=== PATIENT | male | born 1940 | race Caucasian/White ===

== ENCOUNTER 2024-10-18 19:26 | Inpatient (IN) | payer MEDICARE, OTHER ==
[~2024-10-18] VITALS: Ht 170.2 cm; Wt 65.8 kg
[2024-10-18] MEDS ORDERED: CEFTRIAXONE /D5W 50ML IVPB **ER PYXIS IV ONE (20:00)
[2024-10-18] MEDS ORDERED: AZITHROMYCIN 500MG/ D5W 250ML IVPB **ER PYXIS ONLY IV ONE (20:00)
[2024-10-18] MEDS: IV NORMAL SALINE 1000 ML BAG IV ONE (20:02)
[2024-10-18] MEDS: CEFTRIAXONE 1 G in IV DEXTROSE 5% 50 ML IV ONE (20:02)
[2024-10-18] MEDS: AZITHROMYCIN IV 500 MG in IV DEXTROSE 5% 250 ML IV ONE (20:03)
[2024-10-18 20:29] LABS: BASOPHILS # (AUTO) 0.1 K/UL (0.0-0.2); BASOPHILS % (AUTO) 0.3 % (0.0-2.0); EOSINOPHILS % (AUTO) 0.3 % (0.0-7.0); HEMATOCRIT 32.2 % (36.7-47.1); HEMOGLOBIN 10.2 g/dL (12.5-16.3); LYMPHOCYTES % (AUTO) 5.7 % (20.5-51.5); MEAN CORPUSCULAR HEMOGLOBIN 25.6 uug (23.8-33.4); MEAN CORPUSCULAR HGB CONC 32 g/dL (32.5-36.3); MEAN CORPUSCULAR VOLUME 81.1 fL (73.0-96.2); MONOCYTES # (AUTO) 0.8 K/uL (0.1-1.30); MONOCYTES % (AUTO) 4.6 % (0.0-11.0); NEUTROPHILS # (AUTO) 16.1 K/uL (1.8-8.9); NEUTROPHILS % (AUTO) 89.1 % (38.5-71.5); PLATELET COUNT (AUTO) 229 K/uL (152-348); RED BLOOD CELL COUNT(AUTO) 3.97 MIL/uL (4.06-5.63); WHITE BLOOD COUNT (AUTO) 18.1 K/uL (3.6-10.2)
[2024-10-18 20:39] LABS: CALCIUM 8.1 mg/dL (8.5-10.1); CARBON DIOXIDE 29 mmol/L (21-32); CHLORIDE 112 mmol/L (98-107); GLUCOSE 99 mg/dL (74-106); POTASSIUM 3.9 mmol/L (3.5-5.1); SODIUM SERUM 148 mmol/L (136-145); UREA NITROGEN, BLOOD 37 mg/dL (7-18)
[2024-10-18 20:40] LABS: DIFFERENTIAL COMMENT 1
[2024-10-18 20:53] LABS: ALANINE AMINOTRANSFERASE 12 U/L (16-63); ALBUMIN 2.2 g/dL (3.4-5.0); ALKALINE PHOSPHATASE 113 U/L (50-136); ASPARTATE AMINOTRANSFERASE 13 U/L (15-37); BILIRUBIN,DIRECT 0.4 mg/dL (0.0-0.2); BILIRUBIN,TOTAL 0.9 mg/dL (0.2-1.0); NT-PRO BNP 3991 pg/mL (0-125); TOTAL PROTEIN, SERUM 6.4 g/dL (6.4-8.2)
[2024-10-18] MEDS ORDERED: BRIM5DRO3 OP (21:00)
[2024-10-18] MEDS ORDERED: AMIN30LI2 PO (21:00)
[2024-10-18] MEDS ORDERED: ASCO500C18 PO (21:00)
[2024-10-18] MEDS ORDERED: CHOL2000 PO (21:00)
[2024-10-18] MEDS ORDERED: TRAV5DRO EACHEYE (21:00)
[2024-10-18] MEDS ORDERED: BISA10SU61 RC (21:00)
[2024-10-18] MEDS ORDERED: ACET-3117 PO (21:00)
[2024-10-18] MEDS ORDERED: AMIN960L24 PO (21:00)
[2024-10-18] MEDS ORDERED: RIVA10TA PO (21:00)
[2024-10-18] MEDS ORDERED: CLON0.1T PO (21:00)
[2024-10-18] MEDS ORDERED: SENN8.6T19 PO (21:00)
[2024-10-18] MEDS ORDERED: LACO50TA2 PO (21:00)
[2024-10-18] MEDS ORDERED: ALBU8.5H8 IH (21:00)
[2024-10-18] MEDS ORDERED: CALC1POW43 PO (21:00)
[2024-10-18] MEDS ORDERED: ZINC220T4 PO (21:00)
[2024-10-18] MEDS ORDERED: MAGN400O6 PO (21:00)
[2024-10-18] MEDS ORDERED: LEVE500T9 PO (21:00)
[2024-10-18] MEDS ORDERED: CRAN450T9 PO (21:00)
[2024-10-18] MEDS ORDERED: ERGO2000 PO (21:00)
[2024-10-18] MEDS ORDERED: ZOLP5TAB2 PO (21:00)
[2024-10-18] MEDS ORDERED: DORZ10DR18 EACHEYE (21:00)
[2024-10-18] MEDS ORDERED: CARB200C6 PO (21:00)
[2024-10-18] MEDS ORDERED: NA P133E RC (21:00)
[2024-10-18] MEDS ORDERED: norco PO (21:00)
[2024-10-18] MEDS ORDERED: MULT-213 PO (21:00)
[2024-10-18] MEDS ORDERED: ATOR20TA PO (21:00)
[2024-10-18] MEDS ORDERED: IPRA3AMP22 IH (21:00)
[2024-10-18] MEDS ORDERED: LOSA25TA27 PO (21:00)
[2024-10-18] MEDS ORDERED: OMEP40CA21 PO (21:00)
[2024-10-18 21:19] LABS: ABG BASE EXCESS -1.4 mmol/L (-2.0-3.0); ABG PCO2 32.1 mmHg (35.0-48.0); ABG PH 7.454 (7.350-7.450); ABG PO2 82.3 mmHg (83.0-108.0); ABG SITE RIGHT RADIAL; ABG TOTAL HEMOGLOBIN 10.3 G/dL (13.5-17.5); AaDO2 96.7 mmHg; COHb 0.6 % (0.5-1.5); MetHb 0.1 % (0.0-1.5); O2Hb 94.7 % (94.0-98.0)
[2024-10-18] MEDS ORDERED: ALBUTEROL SULFATE 2.5 MG/3 ML NEBU NEB PRN (21:30)
[2024-10-18] MEDS ORDERED: IPRATROPIUM BROMIDE 0.5 MG/2.5 ML NEBU NEB PRN (21:30)
[2024-10-18] MEDS ORDERED: ONDANSETRON 4 MG/2 ML VIAL IV PRN (21:30)
[2024-10-18] MEDS ORDERED: MAGNESIUM HYDROXIDE 30 ML LIQUID UDC PO PRN (21:30)
[2024-10-18] MEDS ORDERED: REMEDY ESSENTIAL ZINC PASTE 113 GM TP PRN (21:30)
[2024-10-18] MEDS ORDERED: ACETAMINOPHEN 325 MG TABLET PO PRN (21:30)
[2024-10-18] MEDS: AMIODARONE HCL IV 150 MG in IV DEXTROSE 5% 100 ML IV ONE (21:45)
[2024-10-18] MEDS ORDERED: AMIODARONE HCL 150 MG/3 ML VIAL IV ONE (22:56)
[2024-10-18 23:00] VITALS: BP 148/84; TEMP 98.6; O2SAT 95
[2024-10-19] MEDS: IV NS 1000 ML 1,000 ML IV PRN (00:19)
[2024-10-19 04:00] VITALS: BP 146/76; TEMP 98.6; O2SAT 98
[2024-10-19] MEDS: PANTOPRAZOLE SODIUM 40 MG TABLET.DR PO SCH (06:15)
[2024-10-19 06:21] LABS: BASOPHILS % (AUTO) 0.2 % (0.0-2.0); EOSINOPHILS # (AUTO) 0.2 K/uL (0.0-0.7); EOSINOPHILS % (AUTO) 1.3 % (0.0-7.0); HEMATOCRIT 29.6 % (36.7-47.1); HEMOGLOBIN 9.7 g/dL (12.5-16.3); LYMPHOCYTES # (AUTO) 1.1 K/uL (0.8-4.8); LYMPHOCYTES % (AUTO) 6.7 % (20.5-51.5); MEAN CORPUSCULAR HEMOGLOBIN 26.4 uug (23.8-33.4); MEAN CORPUSCULAR HGB CONC 33 g/dL (32.5-36.3); MEAN CORPUSCULAR VOLUME 80.6 fL (73.0-96.2); MONOCYTES # (AUTO) 0.7 K/uL (0.1-1.30); MONOCYTES % (AUTO) 4.3 % (0.0-11.0); NEUTROPHILS # (AUTO) 14.2 K/uL (1.8-8.9); NEUTROPHILS % (AUTO) 87.5 % (38.5-71.5); PLATELET COUNT (AUTO) 209 K/uL (152-348); RED BLOOD CELL COUNT(AUTO) 3.67 MIL/uL (4.06-5.63); RED CELL DISTRIBUTION WIDTH 19.2 % (12.1-16.2); WHITE BLOOD COUNT (AUTO) 16.2 K/uL (3.6-10.2)
[2024-10-19 06:48] LABS: CALCIUM 8.2 mg/dL (8.5-10.1); CARBON DIOXIDE 30 mmol/L (21-32); CHLORIDE 113 mmol/L (98-107); CREATININE 0.8 mg/dL (0.6-1.3); GLUCOSE 107 mg/dL (74-106); MAGNESIUM 1.6 mg/dL (1.8-2.4); PHOSPHOROUS 2.4 mg/dL (2.5-4.9); POTASSIUM 3.9 mmol/L (3.5-5.1); SODIUM SERUM 148 mmol/L (136-145); UREA NITROGEN, BLOOD 33 mg/dL (7-18)
[2024-10-19 06:52] LABS: DIFFERENTIAL COMMENT 1
[2024-10-19 07:21] VITALS: BP 157/93; TEMP 98.5; O2SAT 94
[2024-10-19] MEDS ORDERED: BRIMONIDINE-P 0.1% OPHTH DROP 5 ML DROPS OP SCH (09:00)
[2024-10-19] MEDS ORDERED: ERGOCALCIFEROL PO SCH (09:00)
[2024-10-19] MEDS: CARBAMAZEPINE 200 MG TABLET PO SCH (09:14)
[2024-10-19] MEDS: LOSARTAN POTASSIUM 25 MG TABLET PO SCH (09:14)
[2024-10-19] MEDS: levETIRAcetam 500 MG TABLET PO SCH (09:14)
[2024-10-19] MEDS: ZINC SULFATE 220 MG CAPSULE PO SCH (09:15)
[2024-10-19] MEDS: MULTIVIT, IRON, MIN NO. 8, FA TABLET PO SCH (09:15)
[2024-10-19] MEDS: CHOLECALCIFEROL 1,000 UNIT TABLET PO SCH (09:15)
[2024-10-19] MEDS: BRIMONIDINE 0.2% OPHT DROP 10 ML BOTTLE EACHEYE SCH (10:21)
[2024-10-19 10:50] VITALS: O2SAT 94
[2024-10-19 11:22] VITALS: BP 109/69; TEMP 98.5; O2SAT 94
[2024-10-19 14:26] LABS: IRON, SERUM 16 ug/dL (50-175)
[2024-10-19] MEDS: MAGNESIUM OXIDE 400 MG TABLET PO ONE (14:34)
[2024-10-19 15:29] VITALS: BP 136/72; TEMP 98; O2SAT 94
[2024-10-19] MEDS: NEUTRA PHOS PACKET PO ONE (16:47)
[2024-10-19] MEDS: AZITHROMYCIN IV 500 MG in IV DEXTROSE 5% 250 ML IV SCH (18:20)
[2024-10-19 19:20] VITALS: BP 175/90; TEMP 98; O2SAT 100
[2024-10-19] MEDS: CLONIDINE HCL 0.1 MG TABLET PO PRN (19:50)
[2024-10-19] MEDS ORDERED: DILTIAZEM HCL IV 125 MG in IV NORMAL SALINE 100 ML IV PRN (20:00)
[2024-10-19] MEDS ORDERED: CEFTRIAXONE 1 G in IV DEXTROSE 5% 50 ML IV SCH (20:00)
[2024-10-19] MEDS ORDERED: MEROPENEM 1GM/NS 100ML IVPB **ER PYXIS ONLY IV ONE (20:39)
[2024-10-19] MEDS: ENOXAPARIN SODIUM 60 MG/0.6 ML DISP.SYRIN SQ SCH (20:40)
[2024-10-19] MEDS ORDERED: levETIRAcetam 500 MG/5 ML VIAL IV ONE (20:40)
[2024-10-19] MEDS ORDERED: DILTIAZEM HCL 50 MG IV ONE (20:42)
[2024-10-19] MEDS ORDERED: DILTIAZEM HCL 25 MG IV ONE (20:43)
[2024-10-19] MEDS: levETIRAcetam IV 1,500 MG in IV DEXTROSE 5% 100 ML IV SCH (20:49)
[2024-10-19] MEDS: LATANOPROST OPHT DROP 2.5 ML BOTTLE EACHEYE SCH (20:49)
[2024-10-19] MEDS ORDERED: ATORVASTATIN 20 MG TABLET PO SCH (21:00)
[2024-10-19] MEDS ORDERED: RIVAROXABAN 10 MG TABLET PO SCH (21:00)
[2024-10-19] MEDS ORDERED: PROTEIN SUPPLEMENT (PROSTAT) 30 ML LIQUID PO SCH (21:00)
[2024-10-19] MEDS ORDERED: ENOXAPARIN SODIUM 60 MG/0.6 ML DISP.SYRIN SQ SCH (21:00)
[2024-10-19] MEDS ORDERED: ASCORBIC ACID 500 MG TABLET PO SCH (21:00)
[2024-10-19] MEDS ORDERED: levETIRAcetam 500 MG TABLET PO SCH (21:00)
[2024-10-19] MEDS ORDERED: Medication Not On Formulary EA (Amino Acids/Protein Hydrolys (Pro-Stat Liquid) 30 ML) PO SCH (21:00)
[2024-10-19] MEDS ORDERED: CALCIUM CARB/VITAMIN D 500MG-200UNITS TABLET PO SCH (21:00)
[2024-10-19] MEDS: SENNOSIDES 1 TABLET PO SCH (21:04)
[2024-10-19] MEDS: DILTIAZEM HCL IV 125 MG in IV NORMAL SALINE 100 ML IV PRN (21:21)
[2024-10-19] MEDS: MEROPENEM 1 G in IV NORMAL SALINE 100 ML IV SCH (22:17)
[2024-10-19] MEDS: ACETAMINOPHEN 650 MG SUPP.RECT RC PRN (22:20)
[2024-10-19 22:28] LABS: *OCCULT BLOOD STOOL POSITIVE (NEGATIVE)
[2024-10-20] VITALS (7 sets, daily range): BP systolic 116–153; BP diastolic 50–96; TEMP 97.6–99.4; O2SAT 93–98
[2024-10-20 07:16] LABS: BASOPHILS % (AUTO) 0.4 % (0.0-2.0); EOSINOPHILS # (AUTO) 0.4 K/uL (0.0-0.7); HEMATOCRIT 27.7 % (36.7-47.1); HEMOGLOBIN 9.2 g/dL (12.5-16.3); LYMPHOCYTES # (AUTO) 0.6 K/uL (0.8-4.8); LYMPHOCYTES % (AUTO) 6.1 % (20.5-51.5); MEAN CORPUSCULAR HGB CONC 33 g/dL (32.5-36.3); MEAN CORPUSCULAR VOLUME 80.9 fL (73.0-96.2); MONOCYTES # (AUTO) 0.5 K/uL (0.1-1.30); MONOCYTES % (AUTO) 5.8 % (0.0-11.0); NEUTROPHILS # (AUTO) 7.7 K/uL (1.8-8.9); NEUTROPHILS % (AUTO) 83.7 % (38.5-71.5); PLATELET COUNT (AUTO) 180 K/uL (152-348); RED BLOOD CELL COUNT(AUTO) 3.42 MIL/uL (4.06-5.63); RED CELL DISTRIBUTION WIDTH 19.5 % (12.1-16.2); WHITE BLOOD COUNT (AUTO) 9.2 K/uL (3.6-10.2)
[2024-10-20 07:26] LABS: DIFFERENTIAL COMMENT 1
[2024-10-20 07:29] LABS: CARBON DIOXIDE 30 mmol/L (21-32); CHLORIDE 110 mmol/L (98-107); CREATININE 0.6 mg/dL (0.6-1.3); GLUCOSE 97 mg/dL (74-106); MAGNESIUM 1.6 mg/dL (1.8-2.4); PHOSPHOROUS 2.1 mg/dL (2.5-4.9); POTASSIUM 2.9 mmol/L (3.5-5.1); SODIUM SERUM 147 mmol/L (136-145); UREA NITROGEN, BLOOD 22 mg/dL (7-18)
[2024-10-20] MEDS: MAGNESIUM SULFATE/D5W 100 ML IV SCH (11:10)
[2024-10-20] MEDS: POTASSIUM PHOSPHATE MM 15 MMOL in IV NORMAL SALINE 250 ML IV ONE (11:16)
[2024-10-20] MEDS: LORAZEPAM 2 MG/1 ML VIAL IV PRN (19:22)
[2024-10-21] VITALS: BP 134/55; TEMP 98.2; O2SAT 100
[2024-10-21 04:00] VITALS: BP 141/52; TEMP 97.8; O2SAT 95
[2024-10-21 04:25] LABS: *BILIRUBIN,URIN NEGATIVE (NEGATIVE); *BLOOD, URINE NEGATIVE (NEGATIVE); *CLARITY,URINE CLEAR (CLEAR); *COLOR,URINE YELLOW (YELLOW); *KETONES,URINE NEGATIVE (NEGATIVE); *PROTEIN,URINE TRACE (NEGATIVE); LEUKOCYTE ESTERASE ,URINE NEGATIVE (NEGATIVE); NITRITE, URINE NEGATIVE (NEGATIVE); UGLUCOSE NEGATIVE (NEGATIVE)
[2024-10-21 05:21] LABS: BACTERIA,URINE FEW /HPF (NONE SEEN); RBC,URINE 0-3 /HPF (0-3); SQUAMOUS EPITHELIAL CELL,UR FEW /HPF (NONE SEEN); WBC,URINE NONE SEEN /HPF (0-3)
[2024-10-21 06:59] LABS: BASOPHILS % (AUTO) 0.3 % (0.0-2.0); EOSINOPHILS # (AUTO) 0.4 K/uL (0.0-0.7); EOSINOPHILS % (AUTO) 5.9 % (0.0-7.0); HEMATOCRIT 26.3 % (36.7-47.1); HEMOGLOBIN 8.8 g/dL (12.5-16.3); LYMPHOCYTES # (AUTO) 0.8 K/uL (0.8-4.8); LYMPHOCYTES % (AUTO) 10.5 % (20.5-51.5); MEAN CORPUSCULAR HEMOGLOBIN 26.9 uug (23.8-33.4); MEAN CORPUSCULAR HGB CONC 34 g/dL (32.5-36.3); MEAN CORPUSCULAR VOLUME 80.4 fL (73.0-96.2); MONOCYTES # (AUTO) 0.6 K/uL (0.1-1.30); MONOCYTES % (AUTO) 7.4 % (0.0-11.0); NEUTROPHILS # (AUTO) 5.7 K/uL (1.8-8.9); NEUTROPHILS % (AUTO) 75.9 % (38.5-71.5); PLATELET COUNT (AUTO) 174 K/uL (152-348); RED BLOOD CELL COUNT(AUTO) 3.27 MIL/uL (4.06-5.63); RED CELL DISTRIBUTION WIDTH 19.4 % (12.1-16.2); WHITE BLOOD COUNT (AUTO) 7.6 K/uL (3.6-10.2)
[2024-10-21 07:10] LABS: DIFFERENTIAL COMMENT 1
[2024-10-21 07:11] LABS: ALANINE AMINOTRANSFERASE 19 U/L (16-63); ALBUMIN 1.8 g/dL (3.4-5.0); ALKALINE PHOSPHATASE 90 U/L (50-136); ASPARTATE AMINOTRANSFERASE 29 U/L (15-37); BILIRUBIN,DIRECT 0.2 mg/dL (0.0-0.2); BILIRUBIN,TOTAL 0.7 mg/dL (0.2-1.0); CARBON DIOXIDE 31 mmol/L (21-32); CHLORIDE 108 mmol/L (98-107); CREATININE 0.5 mg/dL (0.6-1.3); GLUCOSE 90 mg/dL (74-106); MAGNESIUM 1.9 mg/dL (1.8-2.4); PHOSPHOROUS 2.5 mg/dL (2.5-4.9); POTASSIUM 3.3 mmol/L (3.5-5.1); SODIUM SERUM 144 mmol/L (136-145); TOTAL PROTEIN, SERUM 5.8 g/dL (6.4-8.2); UREA NITROGEN, BLOOD 19 mg/dL (7-18)
[2024-10-21 07:40] VITALS: BP_SYST 124; BP_SYST 142; BP_DIAS 61; BP_DIAS 63; TEMP 97.5; TEMP 97.8; O2SAT 98; O2SAT 99
[2024-10-21] MEDS: POTASSIUM CHLORIDE 50 ML IV SCH (10:14)
[2024-10-21 11:57] VITALS: BP 127/47; TEMP 97.8; O2SAT 100
[2024-10-21 15:42] VITALS: BP 140/50; TEMP 98.2; O2SAT 99
[2024-10-21] MEDS: DILTIAZEM HCL IV 125 MG in IV NORMAL SALINE 100 ML IV PRN (17:24)
[2024-10-21] MEDS: ARGININE/GLUTAMINE/CALCIUM BMB 1 EACH POWD.PACK PO SCH (17:26)
[2024-10-21 20:40] VITALS: BP 136/41; TEMP 98.4; O2SAT 98
[2024-10-22] VITALS (20 sets, daily range): BP systolic 117–174; BP diastolic 39–85; TEMP 97.7–100.9; O2SAT 93–100
[2024-10-22 07:04] LABS: BASOPHILS % (AUTO) 0.5 % (0.0-2.0); EOSINOPHILS # (AUTO) 0.3 K/uL (0.0-0.7); EOSINOPHILS % (AUTO) 4.9 % (0.0-7.0); HEMATOCRIT 25.3 % (36.7-47.1); HEMOGLOBIN 8.4 g/dL (12.5-16.3); LYMPHOCYTES # (AUTO) 0.7 K/uL (0.8-4.8); LYMPHOCYTES % (AUTO) 11.2 % (20.5-51.5); MEAN CORPUSCULAR HEMOGLOBIN 26.8 uug (23.8-33.4); MEAN CORPUSCULAR HGB CONC 33 g/dL (32.5-36.3); MEAN CORPUSCULAR VOLUME 80.7 fL (73.0-96.2); MONOCYTES # (AUTO) 0.6 K/uL (0.1-1.30); MONOCYTES % (AUTO) 9.6 % (0.0-11.0); NEUTROPHILS # (AUTO) 4.8 K/uL (1.8-8.9); NEUTROPHILS % (AUTO) 73.8 % (38.5-71.5); PLATELET COUNT (AUTO) 174 K/uL (152-348); RED BLOOD CELL COUNT(AUTO) 3.13 MIL/uL (4.06-5.63); RED CELL DISTRIBUTION WIDTH 19.3 % (12.1-16.2); WHITE BLOOD COUNT (AUTO) 6.5 K/uL (3.6-10.2)
[2024-10-22 07:18] LABS: CALCIUM 7.7 mg/dL (8.5-10.1); CARBON DIOXIDE 30 mmol/L (21-32); CHLORIDE 106 mmol/L (98-107); CREATININE 0.5 mg/dL (0.6-1.3); GLUCOSE 88 mg/dL (74-106); MAGNESIUM 1.7 mg/dL (1.8-2.4); PHOSPHOROUS 1.9 mg/dL (2.5-4.9); POTASSIUM 3.4 mmol/L (3.5-5.1); SODIUM SERUM 141 mmol/L (136-145); UREA NITROGEN, BLOOD 23 mg/dL (7-18)
[2024-10-22 07:25] LABS: DIFFERENTIAL COMMENT 1
[2024-10-22] MEDS: MAGNESIUM SULFATE/D5W 100 ML IV SCH (09:12)
[2024-10-22] MEDS: POTASSIUM CHLORIDE 50 ML IV SCH (09:12)
[2024-10-22] MEDS: MEDIHONEY= THERAHONEY 1.5 OZ TUBE TOP SCH (09:15)
[2024-10-22] MEDS: POTASSIUM PHOSPHATE MM 15 MMOL in IV NORMAL SALINE 250 ML IV ONE (10:00)
[2024-10-22 16:21] LABS: PROTEIN, BODY FLUID 1.8 G/DL
[2024-10-22 16:22] LABS: TOTAL VOLUME,BODY FLUID 700 mL
[2024-10-22 16:23] LABS: WBC, BODY FLUID 136 /cu. mm (0-200/cu.mm)
[2024-10-22 16:35] LABS: MONOCYTES,BODY FLUID 0 %; POLYNUCLEAR, BODY FLUID 8 % (0-25%)
[2024-10-23] VITALS (21 sets, daily range): BP systolic 99–170; BP diastolic 43–118; TEMP 97.8–98.4; O2SAT 93–100
[2024-10-23 05:13] LABS: BASOPHILS # (AUTO) 0.1 K/UL (0.0-0.2); BASOPHILS % (AUTO) 0.8 % (0.0-2.0); CALCIUM 7.8 mg/dL (8.5-10.1); CARBON DIOXIDE 28 mmol/L (21-32); CHLORIDE 103 mmol/L (98-107); CREATININE 0.5 mg/dL (0.6-1.3); DIFFERENTIAL COMMENT 0; EOSINOPHILS # (AUTO) 0.4 K/uL (0.0-0.7); EOSINOPHILS % (AUTO) 6.4 % (0.0-7.0); GLUCOSE 88 mg/dL (74-106); HEMATOCRIT 26.8 % (36.7-47.1); LYMPHOCYTES # (AUTO) 0.9 K/uL (0.8-4.8); LYMPHOCYTES % (AUTO) 14.2 % (20.5-51.5); MEAN CORPUSCULAR HEMOGLOBIN 27.2 uug (23.8-33.4); MEAN CORPUSCULAR HGB CONC 34 g/dL (32.5-36.3); MEAN CORPUSCULAR VOLUME 81.1 fL (73.0-96.2); MONOCYTES # (AUTO) 0.7 K/uL (0.1-1.30); MONOCYTES % (AUTO) 10.1 % (0.0-11.0); NEUTROPHILS # (AUTO) 4.5 K/uL (1.8-8.9); NEUTROPHILS % (AUTO) 68.5 % (38.5-71.5); PLATELET COUNT (AUTO) 181 K/uL (152-348); POTASSIUM 3.4 mmol/L (3.5-5.1); RED CELL DISTRIBUTION WIDTH 18.7 % (12.1-16.2); SODIUM SERUM 137 mmol/L (136-145); UREA NITROGEN, BLOOD 16 mg/dL (7-18); WHITE BLOOD COUNT (AUTO) 6.5 K/uL (3.6-10.2)
[2024-10-23] MEDS: FUROSEMIDE 20 MG/2 ML VIAL IV SCH (09:54)
[2024-10-23] MEDS: POTASSIUM CHLORIDE 50 ML IV SCH (09:55)
[2024-10-23] MEDS: DILTIAZEM HCL 30 MG TABLET PO SCH (18:21)
[2024-10-24 06:37] LABS: BASOPHILS # (AUTO) 0.1 K/UL (0.0-0.2); BASOPHILS % (AUTO) 0.9 % (0.0-2.0); EOSINOPHILS # (AUTO) 0.4 K/uL (0.0-0.7); EOSINOPHILS % (AUTO) 5.5 % (0.0-7.0); HEMATOCRIT 29.3 % (36.7-47.1); HEMOGLOBIN 9.7 g/dL (12.5-16.3); LYMPHOCYTES # (AUTO) 1.2 K/uL (0.8-4.8); LYMPHOCYTES % (AUTO) 16.6 % (20.5-51.5); MEAN CORPUSCULAR HEMOGLOBIN 26.4 uug (23.8-33.4); MEAN CORPUSCULAR HGB CONC 33 g/dL (32.5-36.3); MONOCYTES # (AUTO) 0.8 K/uL (0.1-1.30); MONOCYTES % (AUTO) 11.1 % (0.0-11.0); NEUTROPHILS # (AUTO) 4.8 K/uL (1.8-8.9); NEUTROPHILS % (AUTO) 65.9 % (38.5-71.5); PLATELET COUNT (AUTO) 233 K/uL (152-348); RED BLOOD CELL COUNT(AUTO) 3.66 MIL/uL (4.06-5.63); RED CELL DISTRIBUTION WIDTH 18.9 % (12.1-16.2); WHITE BLOOD COUNT (AUTO) 7.3 K/uL (3.6-10.2)
[2024-10-24 06:52] LABS: DIFFERENTIAL COMMENT 1
[2024-10-24 06:55] LABS: CALCIUM 8.5 mg/dL (8.5-10.1); CARBON DIOXIDE 28 mmol/L (21-32); CHLORIDE 98 mmol/L (98-107); CREATININE 0.5 mg/dL (0.6-1.3); GLUCOSE 79 mg/dL (74-106); MAGNESIUM 1.9 mg/dL (1.8-2.4); POTASSIUM 4.2 mmol/L (3.5-5.1); SODIUM SERUM 134 mmol/L (136-145); UREA NITROGEN, BLOOD 18 mg/dL (7-18)
[2024-10-24 07:47] VITALS: BP 148/71; TEMP 97.5; O2SAT 94
[2024-10-24] MEDS ORDERED: DILT60TA35 PO (09:15)
[2024-10-24] MEDS ORDERED: MERO1VIA23 IV (09:16)
[2024-10-24 11:53] VITALS: BP 153/72; TEMP 97.5; O2SAT 94
[2024-10-24] MEDS ORDERED: DILTIAZEM HCL 30 MG TABLET PO SCH (12:00)
[2024-10-24] MEDS: DILTIAZEM HCL 60 MG TABLET PO SCH (12:09)
[2024-10-24 15:25] VITALS: BP 134/89; TEMP 98; O2SAT 96
[2024-10-24] MEDS ORDERED: NEUTRA PHOS PACKET PO ONE (17:00)
== END 2024-10-24 16:35 | DRG 871 ==
LOC: ER 19:26 → TELE3 22:35 → TELE-TD3 10-19 19:58 → CCU 10-22 13:30 → TELE-TD3 10-23 22:30
PROVIDERS: ADMIT Nurse Practitioner Acute Care; ATTEND Internal Medicine
PROC: 0W993ZX Drainage of Right Pleural Cavity, Percutaneous Approach, Diagnostic (ICD-10-PCS; principal; 2024-10-22)
PROC: 05HC33Z Insertion of Infusion Device into Left Basilic Vein, Percutaneous Approach (ICD-10-PCS; 2024-10-22)
DX: A41.9 Sepsis, unspecified organism (principal); E43 Unspecified severe protein-calorie malnutrition; J15.69 Pneumonia due to other Gram-negative bacteria; G92.8 Other toxic encephalopathy; J96.01 Acute respiratory failure with hypoxia; J69.0 Pneumonitis due to inhalation of food and vomit; N17.0 Acute kidney failure with tubular necrosis; L89.153 Pressure ulcer of sacral region, stage 3; I50.31 Acute diastolic (congestive) heart failure; I45.2 Bifascicular block; R64 Cachexia; J91.8 Pleural effusion in other conditions classified elsewhere; F03.B3 Unspecified dementia, moderate, with mood disturbance; I31.39 Other pericardial effusion (noninflammatory); I13.0 Hypertensive heart and chronic kidney disease with heart failure and stage 1 through stage 4 chronic kidney disease, or unspecified chronic kidney disease; E87.1 Hypo-osmolality and hyponatremia; Z66 Do not resuscitate; G40.909 Epilepsy, unspecified, not intractable, without status epilepticus; D50.0 Iron deficiency anemia secondary to blood loss (chronic); R62.7 Adult failure to thrive; R65.20 Severe sepsis without septic shock; K21.9 Gastro-esophageal reflux disease without esophagitis; I25.10 Atherosclerotic heart disease of native coronary artery without angina pectoris; I25.2 Old myocardial infarction; I71.20 Thoracic aortic aneurysm, without rupture, unspecified; I73.9 Peripheral vascular disease, unspecified; R19.5 Other fecal abnormalities; L89.620 Pressure ulcer of left heel, unstageable; L89.610 Pressure ulcer of right heel, unstageable; S90.31XA Contusion of right foot, initial encounter; X58.XXXA Exposure to other specified factors, initial encounter; Y92.89 Other specified places as the place of occurrence of the external cause; E87.6 Hypokalemia; E78.5 Hyperlipidemia, unspecified; R13.10 Dysphagia, unspecified; I08.3 Combined rheumatic disorders of mitral, aortic and tricuspid valves; N18.2 Chronic kidney disease, stage 2 (mild); I48.0 Paroxysmal atrial fibrillation; I27.20 Pulmonary hypertension, unspecified; F32.A Depression, unspecified; Z98.42 Cataract extraction status, left eye; Z98.41 Cataract extraction status, right eye; Z79.01 Long term (current) use of anticoagulants; Z87.01 Personal history of pneumonia (recurrent); Z85.828 Personal history of other malignant neoplasm of skin; Y95 Nosocomial condition; Z88.0 Allergy status to penicillin; Z95.0 Presence of cardiac pacemaker; Z96.642 Presence of left artificial hip joint; Z86.16 Personal history of COVID-19; Z87.891 Personal history of nicotine dependence; Z79.899 Other long term (current) drug therapy; Z68.22 Body mass index [BMI] 22.0-22.9, adult
CPT/HCPCS: 32555; 36415; 36600; 70450; 71045; 74018; 83550; 83605; 83615; 83735; 83986; 84100; 84155; 84484; 85025; 85610; 85730; 86140; 87040; 87086; 93307; A4606; A4663; A6213; G0378; J0282; J0456; J0696; J1650; J1940; J1953; J2060; J2185; J3475; J3480; J3490; J7040; J7050